=== PATIENT | female | born 1980 | race Two or more races ===

== ENCOUNTER 2018-02-22 09:59 | Outpatient (CLI) | payer OTHER | END 2018-02-22 10:10 | disposition home or self-care (01) | LOC: LAB 09:59 | DX: N39.0 Urinary tract infection, site not specified (principal); E03.8 Other specified hypothyroidism; D64.89 Other specified anemias; E28.2 Polycystic ovarian syndrome; E55.9 Vitamin D deficiency, unspecified; E78.2 Mixed hyperlipidemia; E28.8 Other ovarian dysfunction ==

== ENCOUNTER 2018-02-22 10:06 | Outpatient (CLI) | payer OTHER | END 2018-02-22 16:27 | disposition home or self-care (01) | LOC: MAMO-SONO 10:06 | DX: R10.2 Pelvic and perineal pain (principal); E04.1 Nontoxic single thyroid nodule; N64.89 Other specified disorders of breast ==

== ENCOUNTER 2019-02-28 11:21 | Outpatient (CLI) | payer OTHER | END 2019-02-28 11:28 | disposition home or self-care (01) | LOC: SONOGRAMA 11:21 | DX: E04.1 Nontoxic single thyroid nodule (principal); R10.2 Pelvic and perineal pain; R42 Dizziness and giddiness ==

== ENCOUNTER 2020-02-06 09:05 | Outpatient (CLI) | payer OTHER | END 2020-02-06 09:17 | disposition home or self-care (01) | LOC: SONOGRAMA 09:05 | DX: R10.13 Epigastric pain (principal); R10.2 Pelvic and perineal pain ==

== ENCOUNTER 2020-07-28 07:31 | Outpatient (CLI) | payer OTHER | END 2020-07-28 07:50 | disposition home or self-care (01) | LOC: LAB 07:31 | DX: E03.8 Other specified hypothyroidism (principal); E78.00 Pure hypercholesterolemia, unspecified; R73.09 Other abnormal glucose ==

== ENCOUNTER 2020-07-28 07:33 | Outpatient (CLI) | payer OTHER | END 2020-07-28 07:39 | disposition home or self-care (01) | LOC: SONOGRAMA 07:33 | DX: E03.8 Other specified hypothyroidism (principal); E04.1 Nontoxic single thyroid nodule ==

== ENCOUNTER → 2021-01-22 09:31 | Outpatient (CLI) | payer OTHER | END | disposition home or self-care (01) | LOC: LAB 09:31 | PROVIDERS: ATTEND Obstetrics & Gynecology | DX: D64.89 Other specified anemias (principal); Z11.3 Encounter for screening for infections with a predominantly sexual mode of transmission; R73.09 Other abnormal glucose; E78.00 Pure hypercholesterolemia, unspecified; E55.9 Vitamin D deficiency, unspecified; N39.0 Urinary tract infection, site not specified ==

== ENCOUNTER 2021-02-04 10:49 | Outpatient (CLI) | payer OTHER | END 2021-02-04 10:55 | disposition home or self-care (01) | LOC: LAB 10:49 | PROVIDERS: ATTEND Obstetrics & Gynecology | DX: R94.5 Abnormal results of liver function studies (principal); E78.00 Pure hypercholesterolemia, unspecified ==

== ENCOUNTER 2021-02-16 15:08 | Outpatient (CLI) | payer OTHER | END 2021-02-16 15:17 | disposition home or self-care (01) | LOC: SONOGRAMA 15:08 | DX: R10.2 Pelvic and perineal pain (principal); E04.1 Nontoxic single thyroid nodule ==

== ENCOUNTER 2021-03-11 07:33 | Outpatient (CLI) | payer OTHER | END 2021-03-12 13:57 | disposition home or self-care (01) | LOC: SONOGRAMA 07:33 | PROVIDERS: ATTEND Obstetrics & Gynecology | DX: R94.5 Abnormal results of liver function studies (principal) ==

== ENCOUNTER → 2021-03-11 08:04 | Outpatient (CLI) | payer OTHER | END | disposition home or self-care (01) | LOC: LAB 08:04 | PROVIDERS: ATTEND Obstetrics & Gynecology | DX: R94.5 Abnormal results of liver function studies (principal); E78.00 Pure hypercholesterolemia, unspecified ==

== ENCOUNTER 2021-05-13 13:51 | Outpatient (CLI) | payer OTHER | END 2021-05-13 13:56 | disposition home or self-care (01) | LOC: LAB 13:51 | DX: R94.5 Abnormal results of liver function studies (principal); Z11.3 Encounter for screening for infections with a predominantly sexual mode of transmission ==